=== PATIENT | male | born 1975 | race Caucasian/White ===

== ENCOUNTER 2020-10-06 16:10 | Emergency (ER) | payer OTHER, SELFPAY ==
[~2020-10-06] VITALS: Ht 170.2 cm; Wt 104.3 kg
[2020-10-06 16:14] VITALS: Ht 170.2 cm; Wt 104.3 kg
[2020-10-06 18:07] VITALS: BP 146/96
== END 2020-10-06 18:00 | disposition home or self-care (01) ==
LOC: ED 16:10
DX: U07.1 COVID-19 (principal); B34.9 Viral infection, unspecified
CPT/HCPCS: U0003